=== PATIENT | female | born 1975 | race Caucasian/White ===

== ENCOUNTER 2017-12-13 10:47 | Emergency (ER) | payer OTHER ==
[~2017-12-13] VITALS: Ht 165.1 cm; Wt 59.1 kg
[2017-12-13] MEDS ORDERED: HYDROCODONE/ACETAMINOPHEN 5-325 MG TABLET PO ONE (12:00)
[2017-12-13] MEDS ORDERED: LIDOCAINE HCL 1% 20 ML VIAL INJ ONE (12:30)
[2017-12-13] MEDS ORDERED: LIDOCAINE HCL 1% 10 ML VIAL ONE (12:58)
[2017-12-13] MEDS ORDERED: LIDOCAINE HCL 1% 10 ML VIAL INJ ONE (13:15)
[2017-12-13 14:22] VITALS: BP 134/76
== END 2017-12-13 14:24 | disposition home or self-care (01) ==
LOC: EMS 10:50
DX: M67.432 Ganglion, left wrist (principal); J40 Bronchitis, not specified as acute or chronic
CPT/HCPCS: 10060; 99284; J3490 ×2